=== PATIENT | female | born 1960 | race Caucasian/White ===

== ENCOUNTER 2016-11-01 10:07 | Observation (INO) | payer MEDICARE ==
[~2016-11-01] VITALS: Ht 165.1 cm; Wt 68.0 kg
[2016-11-01 10:43] LABS: HEMOGLOBIN 13.5 gm/dl (12.3-15.3); RED BLOOD COUNT 4.33 M/UL (4.00-5.10); WHITE BLOOD COUNT 14.1 K/UL (4.5-11.0)
[2016-11-01 11:07] LABS: BUN/CREATININE RATIO 17 (0-10)
[2016-11-01] MEDS ORDERED: ALPRAZOLAM0.5 MG PO (17:59)
[2016-11-01] MEDS ORDERED: CYMBALTA60 MG PO (18:00)
[2016-11-01] MEDS ORDERED: LOPRESSOR 25 MG25 MG PO (18:01)
[2016-11-01] MEDS ORDERED: ADVAIR HFA 115/12 GM VI (18:01)
[2016-11-02 06:27] LABS: HEMOGLOBIN 12.3 gm/dl (12.3-15.3); RED BLOOD COUNT 3.96 M/UL (4.00-5.10)
[2016-11-02 06:51] LABS: BUN/CREATININE RATIO 25 (0-10)
[2016-11-02] MEDS ORDERED: MUCINEX600 MG PO (11:26)
[2016-11-02] MEDS ORDERED: MEDROL DOSEPAK 24 MG PO (11:27)
[2016-11-02] MEDS ORDERED: OMNICEF 300 MG300 MG PO (11:28)
[2016-11-02] MEDS ORDERED: XOPENEX1.25 MG/3 INH (11:31)
== END 2016-11-02 12:54 | disposition home or self-care (01) ==
LOC: ER1 10:07 → ZEROF 14:39 → M/S 14:39
PROVIDERS: Physician Assistant; ADMIT Emergency Medicine
DX: J44.1 Chronic obstructive pulmonary disease with (acute) exacerbation (principal); J20.9 Acute bronchitis, unspecified; D72.829 Elevated white blood cell count, unspecified; T38.0X5A Adverse effect of glucocorticoids and synthetic analogues, initial encounter; R91.1 Solitary pulmonary nodule; I10 Essential (primary) hypertension; F41.9 Anxiety disorder, unspecified; J45.909 Unspecified asthma, uncomplicated; F17.210 Nicotine dependence, cigarettes, uncomplicated; Z79.899 Other long term (current) drug therapy; Z85.820 Personal history of malignant melanoma of skin; Z88.8 Allergy status to other drugs, medicaments and biological substances
CPT/HCPCS: 36415; 36600; 71010; 80053; 81001; 82150; 82550; 82553; 82803; 83690; 83735; 83874; 84484; 85025; 87040; 87070; 87205; 93005; 94640; 94664; 96374; 96375; 99285; G0378; J0696; J2405; J2930; J7030; J7050; Q9963

== ENCOUNTER → 2021-02-22 | Outpatient (CLI) | payer MEDICARE, OTHER ==
[~2021-02-22] MED LIST: ADVAIR HFA 115/12 GM VI; ALPRAZOLAM0.5 MG PO; ARNUITY ELLIP100 MCG INH; BROVANA15 MCG/2 M INH; CHERATUSSIN AC473 ML PO; CYMBALTA60 MG PO; DALIRESP500 MCG PO; DELSYM COUGH+C180 ML PO; DOXYCYCLINE HY100 MG PO; ENOXAPARIN40 MG/0.4 SC; FERROUS SULFAT325 M2 PO; INCRUSE ELLI62.5 MCG INH; IPRAT-ALBUT 0.5-3 ML NEB; KEFLEX CAP 500500 MG PO; LEVAQUIN500 MG PO; LOPRESSOR 25 MG25 MG PO; LORTAB 7.5-3251 EACH PO; MAALOX PLUS 3030 ML PO; MEDROL DOSEPAK 24 MG PO; MEDROL4 MG PO; MUCINEX600 MG PO; NAPROSYN500 MG PO; OMNICEF 300 MG300 MG PO; OXYCODONE HCL5 M1 PO; PERCOCET 7.5-31 EACH PO; PROAIR HFA8.5 GM INH; PYRIDIUM200 MG PO; XANAX1 MG PO; XOPENEX1.25 MG/3 INH; ZOFRAN4 MG PO
== END ==
LOC: OPSV 12:48
DX: M81.0 Age-related osteoporosis without current pathological fracture (principal)
CPT/HCPCS: 96372

== ENCOUNTER → 2021-07-31 | Outpatient (CLI) | payer MEDICARE, OTHER ==
[~2021-07-31] VITALS: Ht 167.6 cm; Wt 72.6 kg
== END ==
LOC: OPSV 14:00
DX: M81.0 Age-related osteoporosis without current pathological fracture (principal)
CPT/HCPCS: 96372